=== PATIENT | male | born 1960 | race African-American/Black ===

== ENCOUNTER 2018-06-28 11:42 | Emergency (ER) | payer MEDICAID, OTHER ==
[~2018-06-28] VITALS: Ht 182.9 cm; Wt 88.6 kg
[2018-06-28 11:50] VITALS: BP 135/78
== END 2018-06-28 20:09 | disposition home or self-care (01) ==
LOC: ER 19:19
DX: Z48.02 Encounter for removal of sutures (principal)
CPT/HCPCS: 99281

== ENCOUNTER 2019-08-03 14:53 | Emergency (ER) | payer MEDICAID, OTHER ==
[~2019-08-03] VITALS: Ht 182.9 cm; Wt 85.0 kg
[2019-08-03 20:21] VITALS: BP 139/67
== END 2019-08-03 21:44 | disposition home or self-care (01) ==
LOC: ER 14:53
DX: R22.0 Localized swelling, mass and lump, head (principal); G50.1 Atypical facial pain; R03.0 Elevated blood-pressure reading, without diagnosis of hypertension
CPT/HCPCS: 70486; 99284

== ENCOUNTER 2021-08-25 20:01 | Emergency (ER) | payer MEDICAID, OTHER ==
[~2021-08-25] VITALS: Ht 185.4 cm; Wt 91.0 kg
[2021-08-25] MEDS ORDERED: TERB30CR8 TP (22:26)
[2021-08-25] MEDS ORDERED: SULF1TAB48 MT (22:26)
[2021-08-25 22:42] VITALS: BP 132/68
[2021-08-26] MEDS ORDERED: TERB30CR8 TP (10:34)
[2021-08-26] MEDS ORDERED: SULF1TAB48 MT (10:34)
== END 2021-08-25 22:43 | disposition home or self-care (01) ==
LOC: ER 20:01
DX: B35.3 Tinea pedis (principal); Z98.890 Other specified postprocedural states
CPT/HCPCS: 99282

== ENCOUNTER 2021-09-16 12:05 | Emergency (ER) | payer MEDICAID ==
[~2021-09-16] VITALS: Ht 185.4 cm; Wt 97.0 kg
[~2021-09-16 12:05] MED LIST: SULF1TAB48 MT; TERB30CR8 TP
[2021-09-16 12:13] VITALS: BP 161/90
[2021-09-16] MEDS ORDERED: TERB30CR8 TP (12:34)
[2021-09-16] MEDS ORDERED: MICO71PO11 TP (12:34)
== END 2021-09-16 12:49 | disposition home or self-care (01) ==
LOC: ER 12:15
DX: B35.3 Tinea pedis (principal); Z76.0 Encounter for issue of repeat prescription
CPT/HCPCS: 99282

== ENCOUNTER 2021-09-22 18:04 | Emergency (ER) | payer MEDICAID ==
[~2021-09-22] VITALS: Ht 182.9 cm; Wt 92.0 kg
[~2021-09-22 18:04] MED LIST changes: +MICO71PO11 TP
[2021-09-22 18:09] VITALS: BP 169/86
[2021-09-22] MEDS ORDERED: TERB250T51 MT ×3 (20:52→21:17)
[2021-09-22] MEDS ORDERED: CEPH500T MT ×3 (20:52→21:17)
== END 2021-09-22 21:37 | disposition home or self-care (01) ==
LOC: ER 18:04
DX: B35.3 Tinea pedis (principal); Z79.899 Other long term (current) drug therapy
CPT/HCPCS: 99283

== ENCOUNTER 2021-10-04 11:29 | Emergency (ER) | payer MEDICAID ==
[~2021-10-04] VITALS: Ht 182.9 cm; Wt 93.0 kg
[~2021-10-04 11:29] MED LIST changes: +CEPH500T MT; +TERB250T51 MT
[2021-10-04] MEDS ORDERED: AMOX-424 PO (12:03)
[2021-10-04] MEDS ORDERED: SULF1TAB48 MT (12:03)
[2021-10-04 12:30] VITALS: BP 143/99
== END 2021-10-04 12:30 | disposition home or self-care (01) ==
LOC: ER 11:29
DX: L03.115 Cellulitis of right lower limb (principal); B35.3 Tinea pedis; R03.0 Elevated blood-pressure reading, without diagnosis of hypertension
CPT/HCPCS: 99283

== ENCOUNTER 2024-10-17 11:39 | Emergency (ER) | payer MEDICARE, MEDICAID ==
[~2024-10-17] VITALS: Ht 182.9 cm; Wt 92.0 kg
[~2024-10-17 11:39] MED LIST changes: +AMOX-424 PO; -CEPH500T MT; -TERB250T51 MT; +TERB250T88 MT
[2024-10-17 11:41] VITALS: O2SAT 98
[2024-10-17 12:03] VITALS: BP 184/92; PULSE 82; RESP 14; TEMP 36.9; O2SAT 64
[2024-10-17] MEDS ORDERED: TOPUD PO (12:41)
[2024-10-17] MEDS ORDERED: IBUP-2029 MT (12:41)
[2024-10-17] MEDS ORDERED: AMOX1TAB16 MT (12:43)
== END 2024-10-17 12:52 | disposition home or self-care (01) ==
LOC: ER 11:39
DX: K02.9 Dental caries, unspecified (principal); Z79.899 Other long term (current) drug therapy; Z98.890 Other specified postprocedural states; Z88.1 Allergy status to other antibiotic agents
CPT/HCPCS: 99283